=== PATIENT | female | born 1970 | race Caucasian/White ===

== ENCOUNTER → 2024-06-29 | Outpatient (CLI) | payer OTHER | END | disposition home or self-care (01) | LOC: MRI 10:52 | PROVIDERS: ATTEND Radiology Diagnostic Radiology | DX: R22.41 Localized swelling, mass and lump, right lower limb (principal); R22.42 Localized swelling, mass and lump, left lower limb | CPT/HCPCS: 73720 ==

== ENCOUNTER 2024-08-24 13:26 | Outpatient (CLI) | payer OTHER | END 2024-08-24 13:27 | disposition home or self-care (01) | LOC: NUCLEAR 13:26 | PROVIDERS: ATTEND Radiology Diagnostic Radiology | DX: M81.0 Age-related osteoporosis without current pathological fracture (principal) ==